=== PATIENT | female | born 1995 | race Caucasian/White ===

== ENCOUNTER 2020-06-18 04:31 | Observation (INO) | payer BC ==
[2020-06-18] MEDS ORDERED: hydrALAZINE 20 MG/ML VIAL SLOW IVP PRN ×2 (04:45→05:52)
[2020-06-18 05:04] VITALS: BP 123/82; TEMP 98.6; BMI 25.4
[2020-06-18] MEDS ORDERED: Promethazine HCl 25 MG/ML VIAL IM PRN (05:52)
[2020-06-18] MEDS ORDERED: Ondansetron PF 4 MG/2 ML Vial IVP PRN (05:52)
[2020-06-18 06:19] LABS: Hemoglobin 10.8 g/dL (12.0-16.0); Mean Corpuscular HGB CONC 34.7 g/dL (32.0-36.0); Mean Corpuscular Hemoglobin 31.8 pg (27.0-31.0); Mean Corpuscular Volume 91.7 fL (78.0-98.0); Mean Platelet Volume 8.4 fL (7.4-10.4); Platelet Count 165 thou/uL (130-400); RBC Distribution Width 12.7 % (11.5-14.5)
--- NOTE | 2020-06-18 06:40 | HP ---
CHIEF COMPLAINT: Vaginal bleeding. PRIMARY OB: Apolonia Jolley CNM HISTORY OF PRESENT ILLNESS: The patient is a 24-year-old G1, P0 female with an intrauterine at 36 weeks and 0 days, presenting to Labor and Delivery with complaints of vaginal bleeding. She reports that she woke up to go to the bathroom earlier this morning and noticed to have bleeding. She had some small clots. She reports the size of slugs that had evacuated and also some wetness that made her concerned. She came in for evaluation. The patient reports that her bleeding has slowed since that initial event. She denies painful contractions, though she does feel [place] contractions that have been present for several weeks now. She denies recent intercourse, change in activity. Denies increased activity yesterday. Denies fever, headache, cough, chest pain, shortness of breath, nausea, or vomiting. She had some diarrhea. Denies constipation. Denies hip problems, new rash. Other than change in discharge, reports some urinary frequency, more so than usual. PAST MEDICAL HISTORY: Negative. PAST SURGICAL HISTORY: The patient had a liver biopsy for unexplained LFTs that have since resolved. ALLERGIES: PENICILLIN. MEDICATIONS: 1. vitamins. 2. Cyclobenzaprine. OB LABS: Unavailable at the time of dictation other than a diabetes screen of 120. She had a COVID test back in approximately six weeks ago that was negative. REVIEW OF SYSTEMS: Per HPI. PHYSICAL EXAMINATION: VITAL SIGNS: Blood pressure 123/82, heart rate of 80, saturating 99% on room air, respiratory rate of 18. GENERAL: She appears to be worried, but otherwise in no acute distress. She is alert, oriented, cooperative, and pleasant to interact with. HEAD: Normocephalic and atraumatic. LUNGS: Clear to auscultation bilaterally. HEART: Has regular rate and rhythm. ABDOMEN: Gravid, soft, nontender. EXTREMITIES: Nontender, nonedematous. VULVA: She has a little bit of blood staining on her vulvar and perineal area. On speculum exam, the patient has approximately 25 mL blood clot in the posterior fornix. Once this was removed, she was noted to have a very minimal bleeding from the inferior aspect of her cervix. Otherwise, she has thick mucus present that is clear and nonbloody. CERVIX: Appears to be normal, does not appear to be friable or inflamed. On digital exam, cervix is closed and thick. There is no palpable part presenting through the vaginal wall. heart tracing shows the fetus with a baseline at 140s with moderate long-term variability. There is a single 10 x 10 acceleration, contractions are picking up about every 2 to 3 minutes. ASSESSMENT AND PLAN: The patient is a 24-year-old G1, P0 female with an intrauterine at 36 weeks, presenting for complaints of vaginal bleeding. The degree of her bleeding definitely is more than I would expect for at this point in the . The patient has a nonreactive NST. I am getting an ultrasound for BPP and for evaluation of placenta for any obvious signs of concern and fluid levels. I do not have any OB labs present. I will be getting a type and screen for Rh status. The plan at this time is prolonged monitoring for at least the next 6 hours for pad counts and also monitoring. Fetus has a category 1 tracing, but not reactive. Awaiting biophysical profile for further evaluation of status. There are no signs that caused any acute concern on my part. I will see how things develop over the next 6 plus hours. Job ID: [id number]
--- NOTE | 2020-06-18 11:16 | ULT ---
BIOPHYSICAL PROFILE: Date: 06/18/2020 INDICATION: Nonreactive, nonstress test. Vaginal bleeding. FINDINGS/IMPRESSION: Tone: 2 Breathin Movement: 2 Amniotic Fluid: 2 Total Score: 8/8 Position: Vertex. Placenta: Anterior. Amniotic fluid: Adequate. GINA recorded at 17.9 cm. heart rate: 152 bpm. POS: AGW
--- NOTE | 2020-06-18 11:19 | ULT ---
OB ULTRASOUND: INDICATIONS: Vaginal bleeding. FINDINGS: Viable intrauterine . Gestational age by ultrasound is 34 weeks 4 days. BIOMETRY: BPD: 33 weeks 2 days HC: 35 weeks 6 days AC: 34 weeks 0 days FL: 35 weeks 0 days EFW: 2425 g (35 weeks 0 days) HEART RATE: 153 beats per minute POSITION: Vertex. PLACENTA: Anterior. AMNIOTIC FLUID: Adequate. GINA: 17.9 cm. BIOPHYSICAL PROFILE: On separate report. IMPRESSION: A 34 week 4 day gestation by ultrasound measurement. POS: AGW
--- NOTE | 2020-06-18 13:38 | PDOC.BPN ---
- Brief Progress Note Reassessed patient. Pad count: showed Quarter-sized bright red blood on pad over course of 2-3 hours. Less than one-fourth of pad saturated. NST reactive. Arabella every 2-3 min after receiving IV fluids. BPP 8/8. SVE: closed/thick/-3. Essentially unchanged from previous check. Bleeding is downtrending. Discussed further observation w/ patient for a couple of more hours to monitor bleeding. Will reach out to primary OB provider regarding observation overnight. Patient is Rh-positive blood type.
[2020-06-18 15:43] LABS: Bacteria/HPF None Seen HPF (None Seen); Bilirubin Negative (Negative); Blood, Urine Negative (Negative); Clarity Clear (Clear); Glucose, Urine (Dipstick) Normal (Negative); Ketone, Urine Negative (Negative); Leukocyte Negative Leu/uL (Negative); Nitrite Negative (Negative); Protein, Urine (Dipstick) Negative (Neg-Trace); RBC/HPF 0-3 HPF (0-3); Specific Gravity, Urine 1.004 (1.002-1.036); Squamous Epithelial 0-3 HPF (0-3); Urobilinogen Normal mg/dL (Less than 2); WBC/HPF 0-3 HPF (0-3); pH, Urine 7.5 (5.0-9.0)
[2020-06-18 15:45] LABS: Urine Culture Reflex No No
--- NOTE | 2020-06-18 16:28 | PDOC.BPN ---
- Brief Progress Note Reassess patient after she ate. Her contractions have slowed down after having a meal. Her bleeding appeared as some brown spotting on her last pad. She is feeling less anxious. Urinalysis was normal, with exception of rare amorphous crystals seen. Discussed with her we are reassured by all of the above and she will be discharged at this time. Discussed return precautions and labor signs and symptoms. Discussed case w/ Dr. Jimenez who agrees with the above plan.
--- NOTE | 2020-06-18 23:05 | SS ---
DATE OF ADMISSION: 06/18/2020 DATE OF DISCHARGE: 06/18/2020 The patient presented this morning for vaginal bleeding and was placed on observation to monitor pad counts and get an ultrasound. At that time, she was noted to be having some regular contractions. However, she did not have change in her cervix throughout the day after approximately 12 hours. These contractions down later in the day after IV fluids and eating. Her bleeding also improved and was very light to minimal spotting. The fetus was reactive and had an 8/8 BPP. At this point, I am comfortable letting her go home with strict precautions. She has an appointment this week with Apolonia Jolley, which I encouraged her to keep. Job ID: [id number]
== END 2020-06-18 17:20 | disposition home health service (06) ==
LOC: L&D/OP 04:31 → L&D 06:26
PROVIDERS: ADMIT Obstetrics & Gynecology; ATTEND Obstetrics & Gynecology
DX: O46.93 Antepartum hemorrhage, unspecified, third trimester (principal); Z3A.36 36 weeks gestation of pregnancy; Z88.0 Allergy status to penicillin
CPT/HCPCS: 36415; 51701; 76815; 76819; 81001; 85027; 86850; 86900; 86901; 99285; G0378

== ENCOUNTER 2020-07-01 05:03 | Inpatient (IN) | payer BC, OTHER ==
[2020-07-01] MEDS ORDERED: hydrALAZINE 20 MG/ML VIAL SLOW IVP PRN ×2 (05:23→07:35)
--- NOTE | 2020-07-01 05:37 | PDOC.LDHP ---
Labor and Delivery H&P Chief complaint: other (bleeding) HPI: PT woke up at 0200 to urinate with no problems. She felt him move all around at that time. she woke up again at 0400 with a lot of bright red bleeding. She thought her water broke but it was just blood. The blood soaked her panties, ran down her leg, was on the floor and filled the toilet. At the times she had not felt the baby move. She denies any pain or contractions. Current gestational age (weeks): 37 (and 6) Due date: 07/16/20 Dating criteria: last menstrual period Grav: 1 Para: 0 Current complications: other (BLEEDING) Abnormal US findings: No (had low lying placenta at 20 weeks. resolved 2.74cm from OS at 23weeks. ) Past Medical History: Elevated liver enzymes. NML liver biopsy Current medications: pre- vitamins Previous surgical history: other (Liver biopsy) Allergies/Adverse Reactions: Allergies Allergy/AdvReac Type Severity Reaction Status Date / Time penicillin G Allergy Intermediate Hives Verified 07/01/20 05:41 Penicillins Allergy Intermediate Hives Verified 07/01/20 05:41 Social history: none - Physical Exam Vital signs reviewed and normal: yes General: resting Heart: RRR Abdomen: NTTP Extremeties: no edema FHT: category 1 [place] contractions every: Irregular - Vaginal Exam Effacement: 25% Station: -3 - OB Labs Blood type: O RH: positive Antibody Screen: negative HIV: negative RPR: negative HEPSAg: negative 1 hour GCT: negative GBS: negative - Assessment L&D Assessment: medically indicated induction Term pt with vaginal bleeding Unknown origin, suspected partial abruption - Plan Plan: admit to L&D, cervical ripening, informed consent obtained, anesthesia consult for pain management -: Advised PCS as mode of delivery. We discussed the risk vs benefits. Pt would like to try to deliver vaginally and declines PCS at this time. We discussed a low tolerance for bleeding / or non-reassuring FHTs would lead to PCS. Advised pt to have epidural for pain management to avoid general anesthesia if became emergent. Pt voices understand and will discuss with her . OB hospitalist Dr. Torres was consulted and is aware of Pt case [place] cervical ripening placed x 5. Remove at 2030 and start pitocin.
[2020-07-01 05:48] VITALS: BMI 25.4
[2020-07-01] MEDS ORDERED: Lactated Ringer's 1,000 ML IV PRN (07:35)
[2020-07-01] MEDS ORDERED: Carboprost 250 MCG/ML AMP IM PRN (07:35)
[2020-07-01] MEDS ORDERED: Ibuprofen 800 MG TAB PO PRN (07:35)
[2020-07-01] MEDS ORDERED: Ondansetron PF 4 MG/2 ML Vial IVP PRN (07:35)
[2020-07-01] MEDS ORDERED: Diphenoxylate HCl/Atropine Tablet PO PRN ×2 (07:35)
[2020-07-01] MEDS ORDERED: HYDROcodone/Acetaminophen 5/325 mg Tablet PO PRN ×2 (07:35)
[2020-07-01] MEDS ORDERED: Butorphanol Tartrate 1 MG/ML VIAL SLOW IVP PRN (07:35)
[2020-07-01] MEDS ORDERED: Methylergonovine 0.2 MG/ML VIAL IM PRN (07:35)
[2020-07-01] MEDS ORDERED: Promethazine HCl 25 MG/ML VIAL IM PRN (07:35)
[2020-07-01] MEDS ORDERED: NS / Oxytocin 40 units/1000ml 1,000 ML IV PRN (07:35)
[2020-07-01] MEDS ORDERED: Misoprostol 200 MCG TAB PR PRN (07:35)
[2020-07-01] MEDS ORDERED: Lidocaine 1% (PF) 30 ML VIAL SC PRN (07:35)
[2020-07-01] MEDS ORDERED: NS w/ Oxytocin 10 units 500 ML IV SCH (07:45)
--- NOTE | 2020-07-01 08:23 | ULT ---
LIMITED OB ULTRASOUND: Date: 07/01/2020 INDICATION: Bleeding. Request made to measure placenta margin to cervix. FINDINGS/IMPRESSION: There is a viable intrauterine . Position: Vertex. Placenta: Anterior. Measurement from placenta margin to cervix is recorded at 7.1 cm. Cervical length: 3.9 cm. heart rate: 147 bpm. POS: AGW
[2020-07-01 08:57] LABS: Hemoglobin 10.7 g/dL (12.0-16.0); Mean Corpuscular HGB CONC 34.4 g/dL (32.0-36.0); Mean Corpuscular Hemoglobin 31.7 pg (27.0-31.0); Mean Corpuscular Volume 92.1 fL (78.0-98.0); Mean Platelet Volume 8.3 fL (7.4-10.4); Platelet Count 173 thou/uL (130-400); RBC Distribution Width 12.9 % (11.5-14.5); Red Blood Cell (RBC) Count 3.37 mill/uL (4.20-5.40); White Blood Cell (WBC) Count 8.7 thou/uL (4.8-10.8)
[2020-07-01 09:36] LABS: Syphilis Antibody Nonreactive (Nonreactive); Syphilis Antibody Index 0.05 S/CO (<1.00 Non-Reactive)
[2020-07-01 09:37] LABS: HBSAg Index 0.14 S/CO (0-0.99); Hep B Surf Ag Non-Reactive S/CO (NonReactive)
[2020-07-01] MEDS: Misoprostol 100 MCG TAB PO SCH (10:00)
[2020-07-01] MEDS ORDERED: Bicitra 30 ML UDCUP ONE (23:06)
--- NOTE | 2020-07-01 23:10 | PDOC.BPN ---
- Brief Progress Note Encounter Date: 07/01/20 Encounter Time: 23:05 OBGYN communications tech Called JOON to LDR4 to assess FHTS by sono. Patient had just gotten up to BR when she returned with SROM and abrupt VB. I confirm cephalic presentation by limited/targeted bedside sono. Sono FHTS with FHTs in 120s, also found with FSE. Due to VB (now mixed with AF), I have recommended urgent CS due to suspected abruption. Xochilt Jolley was on the phone with her when I was in room. She is on the way. I have asked staff home therapy rn to notify anesthesia and T&C. Stat HCT now.
--- NOTE | 2020-07-01 23:15 | PDOC.BPN ---
- Brief Progress Note Encounter Date: 07/01/20 Encounter Time: 22:15 Platelets and fibrinogen level ordered
[2020-07-01 23:28] LABS: Prothrombin Time 12.8 sec (12.0-14.7)
[2020-07-01] MEDS ORDERED: Rocuronium Bromide 10 MG/ML (10ML VIAL) ONE (23:30)
[2020-07-01] MEDS ORDERED: Ondansetron PF 4 MG/2 ML Vial ONE (23:30)
[2020-07-01] MEDS ORDERED: Succinylcholine Chloride 20 MG/ML 10 ml SYRINGE FS ONE (23:30)
[2020-07-01] MEDS ORDERED: PROPOFOL 20 ML ONE (23:30)
[2020-07-01] MEDS ORDERED: PHENYLEPHRINE-NS 100 MCG/ML 10 ML SYRINGE ONE ×2 (23:30→23:41)
[2020-07-01] MEDS ORDERED: Dexamethasone 4 mg/ml Vial ONE (23:30)
[2020-07-01] MEDS ORDERED: Ketorolac Tromethamine 30 MG/ML VIAL ONE (23:30)
[2020-07-01] MEDS ORDERED: Azithromycin 500 MG in Sodium Chloride 0.9% 250 ML 250 ML IVPB SCH (23:30)
[2020-07-01] MEDS ORDERED: Oxytocin 10 UNITS/ML VIAL ONE (23:30)
[2020-07-01 23:33] LABS: Platelet Count 176 thou/uL (130-400)
[2020-07-01] MEDS ORDERED: Carboprost 250 MCG/ML AMP ONE ×2 (23:39→23:40)
[2020-07-01 23:46] LABS: Actual Bicarbonate (HCO3a) 27.2 mEq/L (22-28); Analyzer IN Cardio OR; Base Excess (BEa) -0.1 mEq/L (-2.0 to +3.0)
[2020-07-01] MEDS ORDERED: Midazolam HCl 2 mg/2 ml Vial ONE (23:47)
[2020-07-02] MEDS ORDERED: Fentanyl 100 MCG/2 ML VIAL ONE (00:04)
--- NOTE | 2020-07-02 00:09 | PDOC.BPN ---
- Brief Progress Note Encounter Date: 07/02/20 Encounter Time: 00:05 OP note Dictated Primary LTCS. One unit PRBCs given EBL 1500ml in OR about 300ml EBL in LDR Skin sutured. Mom and baby well Baby apgars 7 and 9
[2020-07-02] MEDS ORDERED: Glycopyrrolate 0.2 MG/ML 5 ML SYRINGE ONE (00:10)
[2020-07-02] MEDS ORDERED: diphenhydrAMINE 50 MG/ML VIAL IM PRN (00:41)
[2020-07-02] MEDS ORDERED: Ondansetron PF 4 MG/2 ML Vial IVP PRN ×2 (00:41→03:17)
[2020-07-02] MEDS ORDERED: Promethazine HCl 25 MG/ML VIAL IM PRN (00:41)
[2020-07-02] MEDS ORDERED: diphenhydrAMINE 25 MG CAP PO PRN (00:41)
[2020-07-02] MEDS ORDERED: fentaNYL Citrate/PF 2,000 MCG in Sodium Chloride 0.9% 60 ML IV PRN (00:41)
[2020-07-02] MEDS ORDERED: Naloxone HCl 0.4 mg/ml Vial IV PRN (00:41)
[2020-07-02] MEDS ORDERED: Zolpidem Tartrate 5 MG TAB PO PRN ×2 (00:41→03:17)
[2020-07-02] MEDS ORDERED: diphenhydrAMINE 50 MG/ML VIAL IVP PRN (00:41)
[2020-07-02] MEDS ORDERED: Communication Order-Pharmacy FS SCH (00:45)
[2020-07-02] MEDS ORDERED: Misoprostol 200 MCG TAB PR PRN (03:17)
[2020-07-02] MEDS ORDERED: HYDROcodone/Acetaminophen 5/325 mg Tablet PO PRN ×2 (03:17)
[2020-07-02] MEDS ORDERED: Lanolin Ointment 7 GM TUBE TOP PRN (03:17)
[2020-07-02] MEDS ORDERED: Methylergonovine 0.2 MG/ML VIAL IM PRN (03:17)
[2020-07-02] MEDS ORDERED: NS / Oxytocin 40 units/1000ml 1,000 ML IV SCH (03:17)
[2020-07-02] MEDS ORDERED: hydrALAZINE 20 MG/ML VIAL SLOW IVP PRN (03:17)
[2020-07-02 08:10] LABS: Hemoglobin 9.8 g/dL (12.0-16.0); Mean Corpuscular HGB CONC 35.4 g/dL (32.0-36.0); Mean Corpuscular Hemoglobin 32.6 pg (27.0-31.0); Mean Platelet Volume 8.5 fL (7.4-10.4); Platelet Count 169 thou/uL (130-400); RBC Distribution Width 12.8 % (11.5-14.5); Red Blood Cell (RBC) Count 3.01 mill/uL (4.20-5.40); White Blood Cell (WBC) Count 17.2 thou/uL (4.8-10.8)
[2020-07-02] MEDS: Misoprostol 100 MCG TAB PO SCH ×2 (08:19→08:20)
[2020-07-02] MEDS ORDERED: Sodium Chloride 0.9% 10 ML ONE (08:33)
[2020-07-02] MEDS: Ketorolac Tromethamine 30 MG/ML VIAL IVP PRN ×3 (08:34→20:42)
[2020-07-02] MEDS: Prenatal Vitamin 1 TAB PO SCH (08:48)
[2020-07-02] MEDS ORDERED: Adacel (T-DAP) 0.5 ML SYRINGE IM ONE (09:00)
--- NOTE | 2020-07-02 11:18 | OP ---
DATE OF PROCEDURE: 07/01/2020 PREOPERATIVE DIAGNOSES: 1. Suspected abruption at early term, remote from delivery. 2. Active vaginal bleeding at about 2-3 cm. POSTOPERATIVE DIAGNOSES: 1. Suspected abruption at early term, remote from delivery. 2. Suspected abruption. 3. Anterior uterine placenta under the site of hysterotomy. PROCEDURE PERFORMED: Primary low-transverse with two-layer closure and Pfannenstiel skin incision. CO-SURGEON: Elmira Schwarz MD ASSISTANTS: Apolonia Jolley CNM. ANESTHESIA: General endotracheal anesthesia as there was no labor epidural in use. ANTIBIOTICS: Ancef and Zithromax per protocol. IV FLUIDS: About 2 L crystalloid. BLOOD PRODUCTS GIVEN: 1 unit of packed red blood cells in OR. URINE OUTPUT: By Bahtia (see Anesthesia record). ESTIMATED BLOOD LOSS: Before quantitative value is about 1500 mL intra op (in addition to 300 mL present in the labor room before arrival to the OR). COMPLICATIONS: None. COUNTS: Correct. FINDINGS: 1. There is an anterior uterus right under the hysterotomy. 2. Time from the hysterotomy incision to baby delivery was about 10-15 seconds. 3. Baby was vigorous. 4. NICU Team present for delivery. 5. No need for resuscitation of the child. 6. Apgars is by verbal report about 1-minute 7 and 5-minute 9. 7. Uterus hemostatic after two-layer closure. 8. Placenta and cord gas sent. PATHOLOGY: Placenta. LAB SENT: Cord gas. DESCRIPTION OF PROCEDURE: After proper informed consent was explained and after reviewing with the patient the need for (suspected abruption), we transported the patient to the OR where she was placed under general endotracheal anesthesia as she did not have a labor epidural. The abdomen was prepped and draped in the usual sterile fashion before induction of anesthesia. When the patient went under anesthesia, we immediately began the procedure using a scalpel to make the Pfannenstiel skin incision. Bovie cautery was used to dissect the subcutaneous tissue down to the level of the fascia. Fascia was entered in a transverse fashion without injury to the underlying structures. Rectus muscles were in the midline and underlying peritoneum was entered in an atraumatic fashion. An Mason O retractor was placed into the wound. A low transverse hysterotomy was made without bladder flap creation. The placenta was extruding from the hysterotomy, so we quickly proceeded to head delivery. The baby was in a cephalic presentation and delivered without incident. Baby was vigorous at with immediate cry. Cord was doubly clamped, transected, and then handed to the NICU team. Delayed cord clamping was not done to prevent any issues with bleeding. The placenta was then massaged out of the uterine cavity and sent to pathology. No retained products of conception into the uterus were noted on dry curettage with a sponge. Uterus was left in situ for repair and closed with #1 Monocryl in a running locking fashion for the 1st layer and then a running nonlocking for the second layer. The 2nd layer included the serosa. We then inspected the incision, noted that it was hemostatic and did copious irrigation. After confirming hemostasis once again, we closed the rectus muscle and the peritoneum in the midline using 2-0 chromic in a running nonlocking fashion. We then closed the fascia with 0 PDS x2 in a running nonlocking fashion. Subcutaneous tissue was copiously irrigated and it was closed with 4-0 Monocryl. Dermabond was also placed on the incision. It is important to note that she did receive Zithromax and Ancef in the OR along with 1 unit packed red blood cells due to the amount of blood loss, both in the labor room and in the OR. Job ID: [id number]
[2020-07-02 12:44] LABS: SARS-CoV-2 MS2 Positive; SARS-CoV-2 N Gene Negative; SARS-CoV-2 S Gene Negative; SARS-CoV-2 by NAA Not Detected (NotDetected); SARS-CoV-2 orf1ab Negative
[2020-07-02] MEDS: Docusate Calcium (SURFAK) 240 MG CAP PO PRN (20:42)
[2020-07-03 05:29] LABS: Hemoglobin 7.9 g/dL (12.0-16.0); Mean Corpuscular HGB CONC 34.4 g/dL (32.0-36.0); Mean Corpuscular Hemoglobin 31.9 pg (27.0-31.0); Mean Corpuscular Volume 92.6 fL (78.0-98.0); Mean Platelet Volume 8.1 fL (7.4-10.4); Platelet Count 142 thou/uL (130-400); Red Blood Cell (RBC) Count 2.47 mill/uL (4.20-5.40); White Blood Cell (WBC) Count 10.1 thou/uL (4.8-10.8)
[2020-07-03] MEDS: Ketorolac Tromethamine 30 MG/ML VIAL IVP PRN (07:09)
[2020-07-03] MEDS ORDERED: Ferrous Sulfate 325 MG TAB PO SCH (08:00)
[2020-07-03] MEDS: Docusate Calcium (SURFAK) 240 MG CAP PO PRN (08:30)
[2020-07-03] MEDS: Prenatal Vitamin 1 TAB PO SCH (08:30)
[2020-07-03 16:58] VITALS: BP 131/78; TEMP 98.6
--- NOTE | 2020-07-03 18:01 | PDOC.PP ---
Post Progress Note Post Day #: 2 Subjective: Pt is doing well, had a BM. s/p cS for abruption. with NML exam. PO intake tolerated: yes Flatus: yes Ambulation: yes Vital Signs (12 hours) Temp Pulse Resp BP Pulse Ox 07/03/20 16:08 98.6 F 92 16 131/78 100 07/03/20 11:39 98.4 F 92 20 125/68 98 07/03/20 08:29 98.4 F 78 20 120/66 98 07/03/20 08:25 98 Weight Weight 153 lb - Physical Examination General: NAD Respiratory: non-labored breathing Abdominal: appropriately TTP Skin: CS incision dry & intact Neurological: no gross focal deficits Psychiatric: A&Ox3, normal affect Result Diagrams: 07/03/20 05:12 Additional Labs: Post Labs Blood Type O POSITIVE 07/01/20 08:46 Hep Bs Antigen Non-Reactive S/CO (NonReactive) 07/01/20 08:46 (1) Status post primary low transverse section Code(s): Z98.891 - HISTORY OF UTERINE SCAR FROM PREVIOUS SURGERY Status: Acute (2) Placental abruption affecting delivery Code(s): O45.90 - PREMATURE SEPARATION OF PLACENTA, UNSP, UNSP TRIMESTER Status: Acute (3) 38 weeks gestation of Code(s): Z3A.38 - 38 WEEKS GESTATION OF Status: Acute - Assessment/Plan A: G1now p1 s/p LTCS for plaental abruption P: Discharge home. 10 days incision check 6 week pp visit.
--- NOTE | 2020-07-04 20:15 | PQF ---
Dear : Jensen Torres Date 07/04/20 Please exercise your independent, professional judgment in responding to the clarification form. Clinical indicators are provided on the bottom of this form for your review Can you please further clarify the diagnosis of the patient? Please check appropriate box(es): [ X ] Acute blood loss anemia [ ] Post-op anemia related to acute blood loss [ X] Other diagnosis Abruptio [ ] Unable to determine In addition, please specify: Present on Admission (POA): [X ] Yes [ ] No [ ] Unable to determine Physician Signature: Date/Time: For continuity of documentation, please document condition throughout progress notes and discharge summary. Thank You. To be completed by CDI/Coding staff for physician review: Present Clinical Indicators - Signs / Symptoms / Labs Results and Location in Medical Record [ x ] Bleeding H and P pg.1 [ x ] Had low lying placenta at 20 weeks H and P pg.1 [ x ] SROM and abrupt VB Brief PN 9 pg.1 [ x ] Urgent CS due to suspected abruption Brief PN 9 pg.1 [ x ] Active vaginal bleeding at about 2-3cm OP report pg.1 [ x ] EBL: 1500ml intraoperative in addition to 300ml in the labor room before arrival to the OR OP report pg.1 [ x ] Hgb: 10.7L, 11.0L, 9.8L, 7.9L Laboratory [ x ] HCT: 31.0L, 31.3L, 27.7L, 22.9L Laboratory Present Risk Factors Results and Location in Medical Record [ x ] Primary Low transverse CS OP report pg.1 [ x ] Placental abruption PN pg.2 [ x ] 37 weeks AOG H and P pg.1 Present Treatments Results and Location in Medical Record [ x ] pack RBC Blood bank [ x ] IV fluids MAR [ x ] H and H monitoring Laboratory [ x ] Ferrous sulfate 325mg PO MAR [ x ] Pnv No.95/ferrous 1 tab PO MAR CDS/Ball Fringe Machine Operator Signature: Jemal Whitman Phone #: [phone] Date: 07/04/2020 This is a permanent part of the Medical Record [facility]
[2020-07-05] MEDS ORDERED: Ibuprofen 800 MG TAB PO SCH (06:00)
== END 2020-07-03 17:38 | disposition home or self-care (01) | DRG 787 ==
LOC: L&D/OP 05:03 → L&D 06:00 → L&D/OP 09:31 → L&D 09:32 → 3SW 07-02 03:25
PROVIDERS: ADMIT Obstetrics & Gynecology; ATTEND Obstetrics & Gynecology
PROC: 10D00Z1 Extraction of Products of Conception, Low, Open Approach (ICD-10-PCS; principal; 2020-07-01)
PROC: 30233N1 Transfusion of Nonautologous Red Blood Cells into Peripheral Vein, Percutaneous Approach (ICD-10-PCS; 2020-07-01)
DX: O45.93 Premature separation of placenta, unspecified, third trimester (principal); D62 Acute posthemorrhagic anemia; Z37.0 Single live birth; Z3A.37 37 weeks gestation of pregnancy; Z88.0 Allergy status to penicillin; Z20.828 Contact with and (suspected) exposure to other viral communicable diseases; O99.02 Anemia complicating childbirth
CPT/HCPCS: 36415; 36430; 51702; 76815; 82805; 85027; 85384; 85610; 85730; 86780; 86850; 86900; 86901; 87340; 87635; 88307; 99283; 99285; J0690; J1100; J1885; J2250; J2405; J2590; J2704; J3010; J3490; P9016; U0003